=== PATIENT | female | born 1960 | race Caucasian/White ===

== ENCOUNTER 2022-07-24 11:45 | Inpatient (IN) | payer OTHER ==
[2022-07-24 12:40] VITALS: BMI 21.2
[2022-07-24] MEDS ORDERED: LOPERAMIDE HCL 2 MG CAPSULE PO PRN (13:24)
[2022-07-24] MEDS ORDERED: BENZOCAINE/MENTHOL (CHLORASEPTIC ) LOZENGE MM PRN (13:24)
[2022-07-24] MEDS ORDERED: NALOXONE HCL (KLOXXADO) 8 MG SPRAY NS PRN (13:24)
[2022-07-24] MEDS ORDERED: MAG HYDROX/AL HYDROX/SIMETH 30 ML UNIT-DOSE CUP PO PRN (13:24)
[2022-07-24] MEDS ORDERED: METHOCARBAMOL 500 MG TABLET PO PRN (13:24)
[2022-07-24] MEDS ORDERED: ONDANSETRON *ODT* 4 MG TABLET SL PRN (13:24)
[2022-07-24] MEDS ORDERED: IBUPROFEN 600 MG TABLET (FP) PO PRN (13:24)
[2022-07-24] MEDS ORDERED: IBUPROFEN 400 MG TABLET (FP) PO PRN (13:24)
[2022-07-24] MEDS ORDERED: POLYETHYLENE GLYCOL (HEALTHYLAX) 3350 17 GM PACKET PO PRN (13:24)
[2022-07-24] MEDS ORDERED: ACETAMINOPHEN 325 MG TABLET (FP) PO PRN ×2 (13:24)
[2022-07-24] MEDS ORDERED: MAGNESIUM HYDROX 2400MG/30ML ORAL SUSPENSION 30 ML CUP PO PRN (13:24)
[2022-07-24] MEDS ORDERED: BISMUTH SUBSALICYLATE 524 MG/30 ML PO PRN (13:24)
[2022-07-24] MEDS ORDERED: DICYCLOMINE HCL 10 MG CAPSULE PO PRN (13:24)
[2022-07-24] MEDS ORDERED: hydrOXYzine PAMOATE 25 MG CAPSULE (FP) PO PRN (13:24)
[2022-07-24] MEDS ORDERED: NICOTINE 10 MG CARTRIDGE (INHALER) IH PRN (13:24)
[2022-07-24] MEDS: PRENATAL VITAMINS W/ FOLIC ACID TABLET (FP) PO SCH (14:29)
[2022-07-24] MEDS: NICOTINE 14 MG/24 HOURS TOPICAL PATCH TD SCH (14:29)
[2022-07-24 18:41] LABS: HEMATOCRIT 34.4 % (32.4-45.2); HEMOGLOBIN 11.6 GM/dL (10.7-15.3); MCH 35.3 pg (25.7-33.7); MCHC 33.7 g/dl (32.0-36.0); MEAN CELL VOLUME 104.7 fl (80-96); MEAN PLT VOLUME 8.6 fl (7.5-11.1); PLATELET COUNT 309 10^3/uL (134-434); RBC 3.28 M/mm3 (3.60-5.2); RDW 12.3 % (11.6-15.6); WHITE BLOOD COUNT 6.2 K/mm3 (4.0-10.0)
[2022-07-24 18:50] LABS: ALBUMIN 3.6 g/dl (3.4-5.0); CALCIUM 9.3 mg/dL (8.5-10.1)
[2022-07-24 18:52] LABS: BLOOD UREA NITROGEN 18.8 mg/dL (7-18)
[2022-07-24 18:54] LABS: CREATININE 0.7 mg/dL (0.55-1.3)
[2022-07-24 18:55] LABS: BILIRUBIN,TOTAL 0.3 mg/dL (0.2-1)
[2022-07-24] MEDS: THIAMINE HCL 100 MG TABLET (FP) PO SCH (22:16)
[2022-07-24] MEDS: MELATONIN 5 MG TABLETS PO SCH (22:16)
[2022-07-25] MEDS ORDERED: LORazepam 1 MG TABLET PO PRN (10:10)
[2022-07-25] MEDS: PRENATAL VITAMINS W/ FOLIC ACID TABLET (FP) PO SCH (10:27)
[2022-07-25] MEDS: LISINOPRIL 20 MG TABLET PO SCH (10:28)
[2022-07-25] MEDS: LORazepam 2 MG TABLET PO SCH ×3 (10:28→22:23)
[2022-07-25] MEDS: PANTOPRAZOLE 40 MG TABLET PO SCH (10:29)
[2022-07-25] MEDS: NICOTINE 14 MG/24 HOURS TOPICAL PATCH TD SCH (10:30)
[2022-07-25] MEDS: metFORMIN HCL 500 MG TABLET (FP) PO SCH (16:52)
[2022-07-25] MEDS: THIAMINE HCL 100 MG TABLET (FP) PO SCH (22:23)
[2022-07-25] MEDS: ATORVASTATIN CA 40 MG TABLET (FP) PO SCH (22:23)
[2022-07-25] MEDS: MIRTAZAPINE 15 MG TABLET (FP) PO SCH (22:23)
[2022-07-25] MEDS: MELATONIN 5 MG TABLETS PO SCH (22:23)
[2022-07-26] MEDS: LORazepam 2 MG TABLET PO SCH ×2 (05:14→10:52)
[2022-07-26] MEDS: metFORMIN HCL 500 MG TABLET (FP) PO SCH ×2 (06:25→17:30)
[2022-07-26] MEDS: LEVOTHYROXINE NA 25 MCG TABLET (FP) PO SCH (06:27)
[2022-07-26] MEDS ORDERED: LEVOTHYROXINE NA 25 MCG TABLET (FP) PO SCH (07:00)
[2022-07-26] MEDS: ESCITALOPRAM OXALATE 20 MG TABLET PO SCH (10:51)
[2022-07-26] MEDS: LISINOPRIL 20 MG TABLET PO SCH (10:51)
[2022-07-26] MEDS: PANTOPRAZOLE 40 MG TABLET PO SCH (10:51)
[2022-07-26] MEDS: PRENATAL VITAMINS W/ FOLIC ACID TABLET (FP) PO SCH (10:51)
[2022-07-26] MEDS: NICOTINE 14 MG/24 HOURS TOPICAL PATCH TD SCH (11:37)
[2022-07-26] MEDS: ATORVASTATIN CA 40 MG TABLET (FP) PO SCH (22:03)
[2022-07-26] MEDS: MELATONIN 5 MG TABLETS PO SCH (22:03)
[2022-07-26] MEDS: THIAMINE HCL 100 MG TABLET (FP) PO SCH (22:03)
[2022-07-26] MEDS: MIRTAZAPINE 15 MG TABLET (FP) PO SCH (22:04)
[2022-07-27] MEDS ORDERED: LORazepam 1 MG TABLET PO SCH (05:00)
[2022-07-27] MEDS: LEVOTHYROXINE NA 25 MCG TABLET (FP) PO SCH (06:10)
[2022-07-27] MEDS: metFORMIN HCL 500 MG TABLET (FP) PO SCH ×2 (06:10→16:38)
[2022-07-27] MEDS: LISINOPRIL 20 MG TABLET PO SCH (10:25)
[2022-07-27] MEDS: PANTOPRAZOLE 40 MG TABLET PO SCH (10:25)
[2022-07-27] MEDS: PRENATAL VITAMINS W/ FOLIC ACID TABLET (FP) PO SCH (10:25)
[2022-07-27] MEDS: ESCITALOPRAM OXALATE 20 MG TABLET PO SCH (10:25)
[2022-07-27] MEDS: NICOTINE 14 MG/24 HOURS TOPICAL PATCH TD SCH (10:33)
[2022-07-27] MEDS: INSULIN SLIDING SCALE (NOVOLOG) 1 VIAL SQ SCH ×2 (17:02→21:44)
[2022-07-27] MEDS: THIAMINE HCL 100 MG TABLET (FP) PO SCH (21:56)
[2022-07-27] MEDS: MELATONIN 5 MG TABLETS PO SCH (21:56)
[2022-07-27] MEDS: ATORVASTATIN CA 40 MG TABLET (FP) PO SCH (21:57)
[2022-07-27] MEDS: MIRTAZAPINE 15 MG TABLET (FP) PO SCH (21:57)
[2022-07-28] MEDS ORDERED: LORazepam 0.5 MG TABLET PO PRN
[2022-07-28] MEDS: LORazepam 0.5 MG TABLET PO SCH ×4 (05:32→22:03)
[2022-07-28] MEDS: metFORMIN HCL 500 MG TABLET (FP) PO SCH ×2 (06:10→17:13)
[2022-07-28] MEDS: LEVOTHYROXINE NA 25 MCG TABLET (FP) PO SCH (06:10)
[2022-07-28] MEDS: INSULIN SLIDING SCALE (NOVOLOG) 1 VIAL SQ SCH ×4 (06:11→22:02)
[2022-07-28] MEDS: PANTOPRAZOLE 40 MG TABLET PO SCH (10:11)
[2022-07-28] MEDS: LISINOPRIL 20 MG TABLET PO SCH (10:11)
[2022-07-28] MEDS: ESCITALOPRAM OXALATE 20 MG TABLET PO SCH (10:11)
[2022-07-28] MEDS: PRENATAL VITAMINS W/ FOLIC ACID TABLET (FP) PO SCH (10:12)
[2022-07-28] MEDS: NICOTINE 14 MG/24 HOURS TOPICAL PATCH TD SCH (10:12)
[2022-07-28] MEDS: MELATONIN 5 MG TABLETS PO SCH (22:02)
[2022-07-28] MEDS: MIRTAZAPINE 15 MG TABLET (FP) PO SCH (22:02)
[2022-07-28] MEDS: ATORVASTATIN CA 40 MG TABLET (FP) PO SCH (22:03)
[2022-07-28] MEDS: THIAMINE HCL 100 MG TABLET (FP) PO SCH (22:03)
[2022-07-29] MEDS ORDERED: LORazepam 0.5 MG TABLET PO ONE (05:00)
[2022-07-29] MEDS: metFORMIN HCL 500 MG TABLET (FP) PO SCH (05:59)
[2022-07-29] MEDS: INSULIN SLIDING SCALE (NOVOLOG) 1 VIAL SQ SCH (05:59)
[2022-07-29] MEDS: LEVOTHYROXINE NA 25 MCG TABLET (FP) PO SCH (06:04)
[2022-07-29 08:37] VITALS: RESP 16
[2022-07-29] MEDS: PRENATAL VITAMINS W/ FOLIC ACID TABLET (FP) PO SCH (09:42)
[2022-07-29] MEDS: LISINOPRIL 20 MG TABLET PO SCH (09:42)
[2022-07-29] MEDS: ESCITALOPRAM OXALATE 20 MG TABLET PO SCH (09:42)
[2022-07-29] MEDS: PANTOPRAZOLE 40 MG TABLET PO SCH (09:42)
[2022-07-29] MEDS: NICOTINE 14 MG/24 HOURS TOPICAL PATCH TD SCH (09:44)
[2022-07-29 09:59] VITALS: BP 152/82; PULSE 73; TEMP 96.8
== END 2022-07-29 09:54 | disposition home or self-care (01) | DRG 897 ==
LOC: YASAS 11:45 → Y3N 13:42
PROVIDERS: ADMIT Allergy & Immunology; ATTEND Family Medicine
PROC: HZ2ZZZZ Detoxification Services for Substance Abuse Treatment (ICD-10-PCS; principal; 2022-07-24)
DX: F10.230 Alcohol dependence with withdrawal, uncomplicated (principal); F17.210 Nicotine dependence, cigarettes, uncomplicated; F41.9 Anxiety disorder, unspecified; F32.A Depression, unspecified; E78.5 Hyperlipidemia, unspecified; E03.9 Hypothyroidism, unspecified; I10 Essential (primary) hypertension; J45.20 Mild intermittent asthma, uncomplicated; K21.9 Gastro-esophageal reflux disease without esophagitis; E11.9 Type 2 diabetes mellitus without complications; Z79.84 Long term (current) use of oral hypoglycemic drugs
CPT/HCPCS: 36415; 80053; 82962; 84443; 85027; 86780; C9803-CS; U0003; U0005